=== PATIENT | female | born 1970 ===

== ENCOUNTER → 2018-10-14 | Outpatient (CLI) | payer BC ==
[~2018-10-14] MED LIST: IOHEXOL 300 MG/ML 100ML VIAL. IV ONE
--- NOTE | 2018-10-14 15:45 | RAD ---
CT of the abdomen with contrast 10/14/2018: HISTORY: Hematuria, renal mass Multidetector CT imaging was performed following an IV bolus injection of iodinated contrast material. The imaging was performed in portal venous and excretory phases. Multiplanar reconstructions were produced. There is a 3.5 x 1.6 x 3.4 cm exophytic mass arising from the posterior aspect of the right kidney. It is heterogeneous and contains fatty as well as solid components. This is most likely an angiomyolipoma. There is an additional tiny 5 mm low-density cortical nodule arising from the anterior aspect of the lower pole of the right kidney. It is too small to definitively characterize. An 8 mm low-density lesion in the anterior aspect of left kidney is probably a cyst. The kidneys show no evidence of obstruction. No adrenal abnormality is detected. No hepatic abnormality is seen. The gallbladder is unremarkable. The pancreas shows no abnormality. The spleen is of normal size. The abdominal aorta is unremarkable. No retroperitoneal or mesenteric adenopathy is seen. The visualized bowel loops are unremarkable. No free fluid is evident in the abdomen. IMPRESSION: 1. Heterogeneous right renal mass containing fatty components, most likely an angiomyolipoma. 2. There is an additional small probable left renal cyst as well as a subcentimeter right renal lesion which is too small to definitively characterize. 3. Correlation with previous renal imaging if available is suggested. PQRS Compliance Statement: One or more of the following individualized dose reduction techniques were utilized for this examination: 1. Automated exposure control 2. Adjustment of the mA and/or kV according to patient size 3. Use of iterative reconstruction technique Electronically signed by: Micah Mcgregor MD (10/14/2018 3:42 PM) [facility]
== END | disposition home or self-care (01) ==
LOC: CT 13:43
PROVIDERS: ATTEND Urology
DX: N28.89 Other specified disorders of kidney and ureter (principal); N28.9 Disorder of kidney and ureter, unspecified; D17.71 Benign lipomatous neoplasm of kidney; Z88.2 Allergy status to sulfonamides; Z88.5 Allergy status to narcotic agent; Z88.1 Allergy status to other antibiotic agents
CPT/HCPCS: 74160; Q9967